=== PATIENT | female | born 1985 | race Caucasian/White ===

== ENCOUNTER → 2017-01-02 | Outpatient (CLI) | payer OTHER | END | disposition home or self-care (01) | LOC: LABWHC1 11:02 | PROVIDERS: ATTEND Obstetrics & Gynecology | DX: Z34.00 Encounter for supervision of normal first pregnancy, unspecified trimester (principal); Z3A.00 Weeks of gestation of pregnancy not specified | CPT/HCPCS: 36415; 84702 ==

== ENCOUNTER → 2017-01-18 | Outpatient (CLI) | payer OTHER ==
--- NOTE | 2017-01-19 07:20 | US ---
EXAMINATION TYPE: US OB anatomy transabd DATE OF EXAM: 01/18/2017 5:28 PM COMPARISON: NONE HISTORY: Z36 Confirm Dates TECHNIQUE: Transabdominal (TA) EXAM MEASUREMENTS: GESTATIONAL AGE / DATING Physician Established: not established Dates by LMP: uncertain Dates by First Scan: no previous Dates by Current Scan for: (23 weeks/5 days) EDC: 05/12/2017 SURVEY IUP: Single PLACENTA: Posterior PREVIA: No previa JOSÉ MIGUEL: 14.1 cm CERVICAL LENGTH (transabdominal: norm > 3.0cm): 3.7 cm BIOMETRY PRESENTATION: Vertex LIE: Oblique BPD: 5.7 cm 23 weeks / 4 days HC: 21.1 cm 23 weeks / 1 days AC: 19.4 cm 24 weeks / 1 days FL: 4.2 cm 23 weeks / 5 days ESTIMATED WEIGHT IN GRAMS: 631 grams ESTIMATED WEIGHT IN LBS/OZS: 1 lbs. 6 oz. WEIGHT PERCENTAGE BASED ON ESTABLISHED DATE: % HC/AC: 1.1 Normal FL/AC: 21.7 Normal HEART RATE: 141 bpm RHYTHM: Normal ANATOMY SEEN (within normal limits): * Lateral Vent (< 1 cm) 0.5 cm * Cisterna Magna (< 1.1 cm) 0.5 cm * Nuchal Fold (< 0.6 cm) 0.4 cm * Cerebellum (varies with age) 2.4 cm Choroid Plexus (bilateral) Midline Falx Cavus Septi Pellucidi Four Chamber Heart Outflow tracts: LVOT Stomach Situs Diaphragm Kidneys (bilateral) Bladder Cord Insert Three Vessel Cord Longitudinal Spine Transverse Spine Arms (bilateral) Legs (bilateral) ANATOMY SEEN (does not appear within normal limits): ANATOMY NOT SEEN: Outflow tracts: RVOT Nose / lips 2 technologistAramis called to rescan for RVOT Call Back appointment made by patient utilising call center. Single live intrauterine gestation is confirmed. Normal cephalad presentation to fetus is currently s een. There is no ultrasound evidence for placenta previa. Amniotic fluid index is within normal limit s. biometry measurements are concordant felt within normal limits. Detailed anatomical survey s hows no suspicious abnormality during real-time scanning with the exception of nose and lips an d RV outflow tract. Still images saved show suboptimal visualization of four-chamber heart and kidneys also. IMPRESSION: As above
== END | disposition home or self-care (01) ==
LOC: RADUSWWP 16:14
PROVIDERS: ATTEND Obstetrics & Gynecology
DX: Z36 Encounter for antenatal screening of mother (principal); Z3A.23 23 weeks gestation of pregnancy
CPT/HCPCS: 76811

== ENCOUNTER → 2017-02-02 | Outpatient (CLI) | payer OTHER ==
--- NOTE | 2017-02-03 07:17 | US ---
EXAMINATION TYPE: US OB Call Back DATE OF EXAM: 02/02/2017 4:20 PM COMPARISON: US 01/18/2017 CLINICAL HISTORY: OB callback. Assess 4 chamber heart, LVOT/RVOT, kidneys, nose/lips. GESTATIONAL AGE / DATING Dates by Initial Survey Scan: (23 weeks/5 days) EDC: 05/12/2017 HEART RATE: 142 bpm RHYTHM: Normal ANATOMY SEEN (second anatomic survey look): Four Chamber Heart: Nose / Lips: Kidneys (bilateral): ANATOMY STILL NOT SEEN (requiring an additional callback appt): Outflow tracts:? LVOT/RVOT due to lie and shadowing from ribs IMPRESSION: Additional callback required given poor visualization of cardiac anatomy.
== END | disposition home or self-care (01) ==
LOC: RADUSWWP 15:37
PROVIDERS: ATTEND Obstetrics & Gynecology
DX: Z36 Encounter for antenatal screening of mother (principal); Z3A.23 23 weeks gestation of pregnancy

== ENCOUNTER → 2017-02-08 | Outpatient (CLI) | payer OTHER ==
[2017-02-08 08:37] LABS: CH 30.6; CHCM 34.7; HCT 34.8 % (34.0-46.0); HDW 3.08; HGB 12.2 gm/dL (11.4-16.0); MCH 30.9 pg (25.0-35.0); MCHC 34.9 g/dL (31.0-37.0); MCV 88.6 fL (80.0-100.0); Mean Platelet Volume 7.7; Non-African American GFR(MDRD) >60 (>60 ml/min/1.73 sqM); RBC 3.93 m/uL (3.80-5.40); WBC 12.5 k/uL (3.8-10.6)
[2017-02-08 08:49] LABS: Appearance,Urine Clear (Clear); Bilirubin,Urine Negative (Negative); Glucose,Urine (UA) Negative (Negative); Ketones,Urine Negative (Negative); Leukocyte Esterase,Urine Negative (Negative); Nitrite,Urine Negative (Negative); PH, Urine 6.5 (5.0-8.0); Protein,Urine Negative (Negative); Specific Gravity,Urine 1.014 (1.001-1.035); UA Billing (MACRO vs. MICRO) CHEM; Urobilinogen,Urine <2.0 mg/dL (<2.0)
[2017-02-08 09:00] LABS: Hepatitis B Surface Ag Index 0.05
[2017-02-09 07:13] LABS: HIV-1/HIV-2 Ab Screen NONREAC (NON REAC)
== END | disposition home or self-care (01) ==
LOC: LABWHC1 06:52
PROVIDERS: ATTEND Obstetrics & Gynecology
DX: Z34.82 Encounter for supervision of other normal pregnancy, second trimester (principal); R53.83 Other fatigue
CPT/HCPCS: 36415; 81003; 82565; 82950; 85027; 86762; 86780; 86850; 86870; 86880; 86886; 86900; 86901; 87086; 87340; 87389; 87491; 87591

== ENCOUNTER → 2017-04-30 | Outpatient (CLI) | payer OTHER ==
--- NOTE | 2017-04-30 11:45 | US ---
EXAMINATION TYPE: US OB >= 14 wk fetus DATE OF EXAM: 04/30/2017 COMPARISON: 01/18/2017 CLINICAL HISTORY: O36.63XO LARGE FOR DUE DATES TECHNIQUE: Transabdominal (TA) GESTATIONAL AGE / DATING Physician Established: (38 weeks/2 days) EDC: 05/12/2017 Dates by LMP: unknown Dates by First Scan: (38 weeks/2 days) EDC: 05/12/2017 Dates by Current Scan: (37 weeks/0 days) EDC: 05/21/2017 SURVEY IUP: Single PLACENTA: accessory anterior, unable to seen posterior placenta PREVIA: No Previa JOSÉ MIGUEL: 12.7 cm Normal CERVICAL LENGTH (transabdominal: norm > 3.0cm): 3.3 cm BIOMETRY PRESENTATION: Vertex LIE: Oblique BPD: 8.9 cm 36 weeks / 0 days HC: 33.1 cm 37 weeks / 5 days AC: 34.0 cm 37 weeks / 6 days FL: 7.3 cm 37 weeks / 2 days ESTIMATED WEIGHT IN GRAMS: 3226 grams ESTIMATED WEIGHT IN LBS/OZS: 7 lbs. 2 oz. WEIGHT PERCENTAGE BASED ON ESTABLISHED DATES: 43% HC/AC: 1.0 Normal FL/AC: 22 Normal HEART RATE: 143 bpm RHYTHM: Normal Probable anterior accessory lobe of placenta, unable to image posterior placenta due to lie. IMPRESSION: 1. Limited assessment of anatomy due to advanced gestational age. 2. Viable of 37 weeks 0 days with an EDC of 05/21/2017 and heart rate 143 bpm.
== END | disposition home or self-care (01) ==
LOC: RADUSWWP 10:54
PROVIDERS: ATTEND Obstetrics & Gynecology
DX: O36.63X0 Maternal care for excessive fetal growth, third trimester, not applicable or unspecified (principal); Z3A.37 37 weeks gestation of pregnancy
CPT/HCPCS: 76805

== ENCOUNTER 2017-05-15 14:43 | Inpatient (IN) | payer OTHER ==
[2017-05-15 16:34] LABS: Basophils % (A) 0 %; CH 30.6; Eosinophils # (A) 0.1 k/uL (0-0.7); Eosinophils % (A) 1 %; HCT 37.4 % (34.0-46.0); HDW 2.92; HGB 12.6 gm/dL (11.4-16.0); Luc % (Auto) 1; Lymphocytes # (A) 1.3 k/uL (1.0-4.8); Lymphocytes % (A) 9 %; MCH 29.5 pg (25.0-35.0); MCHC 33.6 g/dL (31.0-37.0); MCV 87.8 fL (80.0-100.0); Mean Platelet Volume 8.9; Monocytes # (A) 0.6 k/uL (0-1.0); Monocytes % (A) 4 %; Neutrophils # (A) 11.8 k/uL (1.3-7.7); Neutrophils % (A) 84 %; RBC 4.27 m/uL (3.80-5.40); RDW 14.9 % (11.5-15.5); WBC (Perox) 14.21
[2017-05-15 16:37] LABS: Appearance,Urine Clear (Clear); Bilirubin,Urine Negative (Negative); Glucose,Urine (UA) Negative (Negative); Ketones,Urine Negative (Negative); Leukocyte Esterase,Urine Moderate (Negative); Mucus,Urine Rare /hpf; Nitrite,Urine Negative (Negative); PH, Urine 7.5 (5.0-8.0); Particle Count 3520; Protein,Urine Trace (Negative); RBC,Urine 10 /hpf (0-5); Specific Gravity,Urine 1.017 (1.001-1.035); Squamous Epithelial Cell,Urine 4 /hpf (0-4); UA Billing (MACRO vs. MICRO) MICRO; Urobilinogen,Urine <2.0 mg/dL (<2.0); WBC,Urine 24 /hpf (0-5)
[2017-05-15 16:42] LABS: INR 0.9 (<1.2); Partial Thromboplastin Time 23.1 sec (22.0-30.0); Prothrombin Time 9.6 sec (9.0-12.0)
[2017-05-15 16:43] LABS: ALT 36 U/L (9-52); AST 27 U/L (14-36); Blood Urea Nitrogen 8 mg/dL (7-17); LDH 580 U/L (313-618); Non-African American GFR(MDRD) >60 (>60 ml/min/1.73 sqM); Uric Acid 4.7 mg/dL (3.7-7.4)
[2017-05-15 17:16] VITALS: BMI 39.9
[2017-05-15] MEDS: LACTATED RINGERS 1,000 ML IV SCH ×2 (18:15→23:43)
--- NOTE | 2017-05-15 18:18 | P.HPOB ---
History of Present Illness H&P Date: 05/15/17 Chief Complaint: Intrauterine at term: Gestational hypertension: Questionable rupt eJnnifer is a 31-year-old G 2 P0 at 40-3/7 weeks gestation who arrived to my office afternoon for her normal preoperative visit. On evaluation was noted that her blood pressures 156 over's 80 and she was sent to labor and delivery due to gestational hypertension and she also other blood pressures last week. The goal was to watch her today and potentially start to deliver her tomorrow however multiple blood pressures in labor and delivery also been elevated and then in talking to her she noted that she began leaking potentially earlier this morning this is for she's mentioned artificial rupture members was attempted but no fluid came out and no bag of water could be identified. She is to have centimeter dilated 80% effaced -2 station. Suspect rupture membranes earlier today as well. We'll initiate antibody therapy the next few hours as it is unlikely she will deliver before it is been 18 hours since potential rupture since she did rupture at approximately 6 this morning potentially. Her Precis course otherwise was significant for a positive antibody screening it was too weak E we have repeated multiple times and no other findings have been elucidated. She didn't see maternal medicine consult but again we've been unable to find any change in her antibody screen numbers and her ultrasounds and other course has been unremarkable. Pertinent labs do include AB+ blood type Rh antibody was again positive between 2 identify. Rubella immune, hepatitis B surface antigen and RPR both negative. Groupie strep was also negative. On physical exam vital signs are stable and afebrile. Heart regular, lungs clear, extremities without pain. Osteopathic exams unremarkable. Her preeclamptic labs were only significant for trace protein. Assessment intrauterine at 40 weeks with gestational hypertension and questionable spontaneous rupture membranes earlier today. Plan expect spontaneous vaginal delivery Past Medical History Past Medical History: Asthma, Hypertension Additional Past Medical History / Comment(s): optical migraines, asthma, elev in b/p, contacts in History of Any Multi-Drug Resistant Organisms: None Reported Past Surgical History: Tonsillectomy Additional Past Surgical History / Comment(s): ectopic Past Anesthesia/Blood Transfusion Reactions: No Reported Reaction Additional Past Anesthesia/Blood Transfusion Reaction / Comment(s): hx of transfusion. weak antibody on blood that is undeterminable. Past Psychological History: No Psychological Hx Reported Smoking Status: Never smoker Past Alcohol Use History: None Reported Past Drug Use History: None Reported - Past Family History Sister(s) Family Medical History: Rheumatoid Arthritis (RA) Additional Family Medical History / Comment(s): lupus Medications and Allergies Home Medications Medication Instructions Recorded Confirmed Type Fluticasone Propionate [Flovent 100 mcg INHALATION 05/10/17 History Diskus] Montelukast [Singulair] 10 mg PO DAILY 05/10/17 05/15/17 History Pnv,Calcium 72/Iron/Folic Acid 1 tab PO DAILY 05/10/17 05/15/17 History [ Plus Tablet] Allergies Allergy/AdvReac Type Severity Reaction Status Date / Time No Known Allergies Allergy Verified 05/10/17 15:25 Exam Osteopathic Statement: *. No significant issues noted on an osteopathic structural exam other than those noted in the History and Physical/Consult. - Vital Signs Vital signs: Vital Signs Temp Pulse Resp BP Pulse Ox 05/15/17 16:00 98.2 F 125 H 18 142/77 96 Intake and Output 05/15/17 05/15/17 05/15/17 06:59 14:59 22:59 Other: Weight 115.666 kg Patient Weight 05/16/17 06:59 Weight 115.666 kg Results Result Diagrams: 05/15/17 16:10 05/15/17 16:10 Abnormal Lab Results - Last 24 Hours (Table) 05/15/17 05/15/17 Range/Units 16:10 16:10 WBC 14.0 H (3.8-10.6) k/uL Neutrophils # 11.8 H (1.3-7.7) k/uL Urine Protein Trace H (Negative) Ur Leukocyte Esterase Moderate H (Negative) Urine RBC 10 H (0-5) /hpf Urine WBC 24 H (0-5) /hpf Urine Mucus Rare H (None) /hpf
[2017-05-15] MEDS ORDERED: CARBOPROST TROMETHAMINE 250 MCG/ML 1 ML AMP IM PRN (18:20)
[2017-05-15] MEDS ORDERED: TERBUTALINE 1 MG/ML VIAL SQ PRN (18:20)
[2017-05-15] MEDS ORDERED: METHYLERGONOVINE 0.2 MG/ML 1 ML AMP IM PRN (18:20)
[2017-05-15] MEDS ORDERED: OXYTOCIN 10 UNIT/ML 1 ML VIAL IM PRN (18:20)
[2017-05-15] MEDS ORDERED: LIDOCAINE 1% (PF) 10 MG/ML (30 ML SDV) SQ PRN (18:20)
[2017-05-15] MEDS ORDERED: AMPICILLIN 2,000 MG in SODIUM CHLORIDE 0.9% 100 ML IVPB STA (18:26)
[2017-05-15] MEDS ORDERED: OXYTOCIN 20 UNITS/1000 ML NS 1,000 ML IV SCH (18:30)
[2017-05-15] MEDS ORDERED: BUTORPHANOL 1 MG/ML 1 ML VIAL IV PRN (21:39)
[2017-05-15] MEDS ORDERED: BUPIVACAINE (PF) 0.25% 30 ML VIAL ONE (23:28)
[2017-05-15] MEDS ORDERED: SODIUM CHLORIDE 0.9% 100 ML BAG ONE (23:28)
[2017-05-15] MEDS ORDERED: fentaNYL (PF) 50 MCG/ML 5 ML AMP ONE (23:28)
[2017-05-15] MEDS ORDERED: BUPIVACAINE (PF) 0.25% 25 ML, fentaNYL (PF) 200 MCG in SODIUM CHLORIDE 0.9% 71 ML EPIDURAL ONE (23:47)
[2017-05-16] MEDS: AMPICILLIN 1,000 MG in SODIUM CHLORIDE 0.9% 50 ML IVPB SCH ×4 (00:08→18:03)
[2017-05-16] MEDS: LACTATED RINGERS 1,000 ML IV SCH ×3 (03:21→20:52)
[2017-05-16] MEDS ORDERED: KETOROLAC 30 MG/ML 1 ML VIAL ONE (08:50)
[2017-05-16] MEDS ORDERED: CHLOROPROCAINE 3% 30 MG/ML 20 ML VIAL ONE (08:50)
[2017-05-16] MEDS ORDERED: OXYTOCIN 10 UNIT/ML 1 ML VIAL ONE (08:50)
[2017-05-16] MEDS ORDERED: PHENYLEPHRINE-0.9% NACL SYG 1 MG/10 ML SYRINGE ONE (08:50)
[2017-05-16] MEDS ORDERED: ONDANSETRON 4 MG/2 ML VIAL ONE (08:50)
[2017-05-16] MEDS ORDERED: fentaNYL (PF) 50 MCG/ML 2 ML AMP ONE (08:50)
[2017-05-16] MEDS ORDERED: METOCLOPRAMIDE 5 MG/ML 2 ML VIAL IVP PRN (09:56)
[2017-05-16] MEDS ORDERED: diphenhydrAMINE 50 MG/ML 1 ML VIAL IVP PRN ×2 (09:56)
[2017-05-16] MEDS ORDERED: HYDROmorphone PCA 5 MG/25 ML SYRINGE IV PRN (09:56)
[2017-05-16] MEDS ORDERED: SIMETHICONE 80 MG CHEWABLE PO PRN (09:56)
[2017-05-16] MEDS ORDERED: ONDANSETRON 4 MG/2 ML VIAL IVP PRN (09:56)
[2017-05-16] MEDS ORDERED: ZOLPIDEM 5 MG TAB PO PRN (09:56)
[2017-05-16] MEDS ORDERED: diphenhydrAMINE 25 MG CAP PO PRN (09:56)
[2017-05-16] MEDS ORDERED: diphenhydrAMINE 50 MG CAP PO PRN (09:56)
[2017-05-16] MEDS ORDERED: ACETAMINOPHEN TAB 325 MG TAB PO PRN (09:56)
[2017-05-16] MEDS ORDERED: NALOXONE 0.4 MG/ML 1 ML VIAL IV PRN (09:56)
--- NOTE | 2017-05-16 13:19 | P.OP ---
Date of Procedure: 05/16/17 Preoperative Diagnosis: Intrauterine at term: Gestational hypertension: Arrest of descent Postoperative Diagnosis: Same with asynclitic presentation Procedure(s) Performed: Primary low transverse section Implants: Anesthesia: epidural Surgeon: John Rome Sr. Director #1: Dulce Maria Zhong Estimated Blood Loss (ml): 400 IV fluids (ml): 1,500 Urine output (ml): 100 Pathology: other (Placenta) Condition: stable Disposition: floor Indications for Procedure: Operative Findings: Patient progressed complete and pushing and despite 2 hours pushing did not bring the baby down past 0 station. scores were 9 and 10 at one and 5 minutes respectively and the weight was 7 lbs. 11 oz. Description of Procedure: Patient was taken to the operating suite where is epidural anesthetic was found to be adequate. She was prepped and draped in the normal sterile fashion and placed in the dorsal supine position with leftward tilt. Initially a Pfannenstiel skin incision was made and this incision was then carried through to the underlying layer of the fascia was second knife. Fascia was then nicked in the midline and this opening was extended laterally with Tabares scissors. Superior and inferior aspect of this incision were grasped tented up and bluntly and sharply dissected off the rectus muscles. Rectus muscles were then divided midline and sharp dissection through the peritoneum was made. This opening was then extended superiorly and inferiorly with good visualization of both bowel bladder. Bladder blade was then placed bladder flap identified and entered with metastases scissors and this opening was extended across face of uterus. Blunt dissection the bladder flap was then made. Knife was then used to incise uterus opening was then fully created with a hemostat and the incision was extended bluntly. Head was then delivered atraumatically from asynclitic left transverse position once head was delivered mouth nares were bulb suctioned anterior posterior shoulders were delivered with gentle downward upper traction.. Umbilical cord was then clamped cut usual fashion an nursery personnel was present to assume care. Placenta was then delivered intact and Pitocin was added to the IV. Uterus was then exteriorized cleared of clots and debris and closed in 2 layers with 0 Vicryl suture. Bladder flap was reapproximated with 3-0 Vicryl. Blood and debris was suctioned from the posterior cul-de-sac and the uterus was reinserted into the abdomen. Peritoneal layer was then closed with 0 Vicryl suture fascial layer was closed with 0 Vicryl suture one layer of 3-0 Vicryl placed in the deep subcuticular tissue tissues to reapproximate skin and close space. Skin was then closed with fabiano. Sponge, lap, needle counts were all correct 2. Patient was then taken to the recovery room in stable and satisfactory condition.
[2017-05-16] MEDS: SENNOSIDES-DOCUSATE SODIUM 1 EACH TAB PO SCH (20:52)
[2017-05-17] MEDS: LACTATED RINGERS 1,000 ML IV SCH ×3 (01:46→20:55)
[2017-05-17 06:55] LABS: Basophils % (A) 0 %; CH 30.3; Eosinophils # (A) 0.1 k/uL (0-0.7); Eosinophils % (A) 0 %; HDW 2.86; HGB 10.9 gm/dL (11.4-16.0); Luc # (Auto) 0.23; Luc % (Auto) 2; Lymphocytes # (A) 1.8 k/uL (1.0-4.8); Lymphocytes % (A) 11 %; MCH 29.6 pg (25.0-35.0); MCV 89.7 fL (80.0-100.0); Mean Platelet Volume 8.8; Monocytes # (A) 0.6 k/uL (0-1.0); Monocytes % (A) 4 %; Neutrophils % (A) 83 %; RBC 3.69 m/uL (3.80-5.40); WBC 15.8 k/uL (3.8-10.6); WBC (Perox) 16.68
--- NOTE | 2017-05-17 09:57 | P.PNOBGPC ---
Subjective - Subjective Principal diagnosis: Postop day 1 Interval history: Overall is doing very well postop day 1. She is ambulating, voiding, and she is tolerating a diet. She voices no complaints. Vital signs are stable and afebrile. Plan for continued current care. Patient reports: Reports appetite normal, Reports voiding normally, Reports pain well controlled, Reports ambulating normally [place]: doing well Objective - Vital Signs Latest vital signs: Vital Signs Temp Pulse Resp BP Pulse Ox 05/17/17 08:00 98.4 F 95 15 126/72 95 05/17/17 03:34 97.9 F 95 16 114/64 100 05/17/17 00:00 98.0 F 87 16 106/54 100 05/16/17 20:00 98.7 F 117 H 18 125/63 97 05/16/17 15:47 98.4 F 105 H 18 128/64 97 05/16/17 11:39 97.4 F L 113 H 16 136/78 98 05/16/17 11:09 112 H 16 133/70 100 05/16/17 10:39 108 H 16 136/69 98 05/16/17 10:24 93 16 136/76 98 05/16/17 10:09 108 H 16 132/77 96 Intake and Output 05/16/17 05/17/17 05/17/17 22:59 06:59 14:59 Intake Total 900 Output Total 750 Balance -750 900 Intake: IV 900 Invasive Line 1 900 Output: Urine 750 Straight 400 Other: # Voids 1 - Exam Lungs: bilateral: normal Chest: Normal S1, Normal S2 Extremities: Present: normal Abdomen: Present: normal appearance, soft. Absent: distention, tenderness Incision: Present: normal, dry, intact Uterus: Present: normal, firm - Labs Labs: Abnormal Lab Results - Last 24 Hours (Table) 05/17/17 Range/Units 06:40 WBC 15.8 H (3.8-10.6) k/uL RBC 3.69 L (3.80-5.40) m/uL Hgb 10.9 L (11.4-16.0) gm/dL Hct 33.0 L (34.0-46.0) % Neutrophils # 13.0 H (1.3-7.7) k/uL
[2017-05-17] MEDS: SENNOSIDES-DOCUSATE SODIUM 1 EACH TAB PO SCH ×2 (10:35→20:28)
[2017-05-17] MEDS: IBUPROFEN 600 MG TAB PO PRN (10:35)
[2017-05-17] MEDS ORDERED: Acetaminophen-Codeine 300-30mg TAB PO PRN ×2 (12:26→12:29)
[2017-05-18] MEDS: IBUPROFEN 600 MG TAB PO PRN
[2017-05-18 00:13] VITALS: RESP 16
--- NOTE | 2017-05-18 08:04 | P.DS ---
Providers Date of admission: 05/15/17 14:43 Expected date of discharge: 05/18/17 Attending physician: John Rome Primary care physician: Stated None Hospital Course: is doing very well postop day 2. She is ambulating, voiding, and she is tolerating her diet. She voices no complaints. Vital signs are stable and afebrile. Heart regular, lungs, extremities without pain. Abdomen soft uterus is firm incision is clean dry and intact. Prescriptions for pain medicine have been provided as well as prescription for breast pump. Discharge instructions were thoroughly reviewed and all questions are answered for her prior to her discharge. Assessment postop day 2. Plan discharged home follow up with me in 1 week Patient Condition at Discharge: Good Plan - Discharge Summary New Discharge Prescriptions: New Acetaminophen-Codeine 300-30mg [Tylenol #3] 1 tab PO Q4H PRN #30 tablet PRN Reason: Pain Ibuprofen [Motrin] 600 mg PO Q6HR PRN #30 tab PRN Reason: Pain No Action Fluticasone Propionate [Flovent Diskus] 100 mcg INHALATION Montelukast [Singulair] 10 mg PO DAILY Pnv,Calcium 72/Iron/Folic Acid [ Plus Tablet] 1 tab PO DAILY Discharge Medication List Fluticasone Propionate [Flovent Diskus] 100 mcg INHALATION 05/10/17 [History] Montelukast [Singulair] 10 mg PO DAILY 05/10/17 [History] Pnv,Calcium 72/Iron/Folic Acid [ Plus Tablet] 1 tab PO DAILY 05/10/17 [ History] Acetaminophen-Codeine 300-30mg [Tylenol #3] 1 tab PO Q4H PRN #30 tablet [Rx] Ibuprofen [Motrin] 600 mg PO Q6HR PRN #30 tab 05/18/17 [Rx] Follow up Appointment(s)/Referral(s): John Rome DO [Doctor of Osteopathic Medicine] - 1 Week Activity/Diet/Wound Care/Special Instructions: No heavy lifting, limit stairs and driving, and pelvic rest. If any high temperatures, heavy bleeding, or severe pain call my office Discharge Disposition: HOME SELF-CARE
[2017-05-18] MEDS: SENNOSIDES-DOCUSATE SODIUM 1 EACH TAB PO SCH (08:44)
[2017-05-18 08:59] VITALS: BP 139/87; PULSE 106; TEMP 98
== END 2017-05-18 12:42 | disposition home or self-care (01) | DRG 766 ==
LOC: 4FBP 14:43
PROVIDERS: ADMIT Obstetrics & Gynecology; ATTEND Obstetrics & Gynecology
PROC: 00HU33Z Insertion of Infusion Device into Spinal Canal, Percutaneous Approach (ICD-10-PCS; 2017-05-15)
PROC: 3E0R3CZ (ICD-10-PCS; 2017-05-15)
PROC: 10D00Z1 Extraction of Products of Conception, Low, Open Approach (ICD-10-PCS; principal; 2017-05-16)
DX: O13.4 Gestational [pregnancy-induced] hypertension without significant proteinuria, complicating childbirth (principal); G43.909 Migraine, unspecified, not intractable, without status migrainosus; J45.909 Unspecified asthma, uncomplicated; O99.52 Diseases of the respiratory system complicating childbirth; O62.1 Secondary uterine inertia; Z37.0 Single live birth; Z3A.40 40 weeks gestation of pregnancy; Z79.51 Long term (current) use of inhaled steroids; Z79.899 Other long term (current) drug therapy
CPT/HCPCS: 81001; 82565; 83615; 84450; 84460; 84520; 84550; 85025; 85610; 85730; 88307

== ENCOUNTER → 2018-04-26 | Outpatient (CLI) | payer BC ==
--- NOTE | 2018-04-26 16:50 | US ---
EXAMINATION TYPE: US thyroid st tissue head/neck DATE OF EXAM: 04/26/2018 COMPARISON: NONE CLINICAL HISTORY: E04.9 Goiter. Goiter GLAND SIZE: Right Lobe: 6.1 x 2.2 x 2.7 cm Overall Parenchyma: heterogenous Left Lobe: 6.4 x 2.0 x 2.7 cm Overall Parenchyma: heterogeneous Isthmus Thickness: 0.7 cm NODULES RIGHT: # of nodules measured on right: 0 LEFT: # of nodules measured on left: 0 ISTHMUS: # of nodules measured in the isthmus: 0 Bilateral neck scanned, multiple lymph nodes noted Heterogeneous thyroid gland IMPRESSION: 1. Thyroid lobes are heterogenous. No suspicious nodules.
== END | disposition home or self-care (01) ==
LOC: RADUSWWP 16:06
PROVIDERS: ATTEND Pediatrics
DX: E04.9 Nontoxic goiter, unspecified (principal)
CPT/HCPCS: 76536

== ENCOUNTER 2019-02-24 10:37 | Emergency (ER) | payer OTHER, BC ==
[2019-02-24 10:45] VITALS: BP 142/90; RESP 20; TEMP 98
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
[2019-02-24 12:02] VITALS: PULSE 101
== END 2019-02-24 12:04 | disposition home or self-care (01) ==
LOC: EC 10:37
DX: S20.219A Contusion of unspecified front wall of thorax, initial encounter (principal); V89.2XXA Person injured in unspecified motor-vehicle accident, traffic, initial encounter; Y92.410 Unspecified street and highway as the place of occurrence of the external cause
CPT/HCPCS: 70450; 71046; 72125; 99284

== ENCOUNTER 2020-08-22 16:18 | Emergency (ER) | payer BC ==
[2020-08-22 16:39] VITALS: BP 129/84; PULSE 87; RESP 18; TEMP 98.4
[2020-08-22] MEDS ORDERED: KETOROLAC 15 MG/ML 1 ML VIAL IM STA (16:48)
--- NOTE | 2020-08-22 16:56 | ED ---
Upper Extremity HPI - General Chief Complaint: Extremity Injury, Upper Stated Complaint: L Index Finger Injury Time Seen by Provider: 08/22/20 16:41 Source: patient Mode of arrival: ambulatory Limitations: no limitations - History of Present Illness Initial Comments: 35-year-old female presenting to emergency Department with a chief complaint of finger injury. Patient reports she smashed her left index finger about 2 hours ago. States she was moving a large plantar and her finger was pinned under it and is symmetric. Patient reports there is limited range of motion swelling and mild ecchymosis in the region. Reports taking 3 Tylenol tablets for pain with no significant improvement of symptoms. She denies any numbness or tingling. - Related Data Home Medications Medication Instructions Recorded Confirmed Acetaminophen Tab [Tylenol Tab] 1,000 mg PO Q6HR PRN 02/24/19 02/24/19 Allergies Allergy/AdvReac Type Severity Reaction Status Date / Time No Known Allergies Allergy Verified 08/22/20 16:40 Review of Systems ROS Statement: Those systems with pertinent positive or pertinent negative responses have been documented in the HPI. ROS Other: All systems not noted in ROS Statement are negative. Past Medical History Past Medical History: Asthma History of Any Multi-Drug Resistant Organisms: None Reported Past Surgical History: Section, Tonsillectomy Past Psychological History: No Psychological Hx Reported Smoking Status: Never smoker Past Alcohol Use History: Rare Past Drug Use History: None Reported General Exam Limitations: no limitations General appearance: alert, in no apparent distress Head exam: Present: atraumatic, normocephalic, normal inspection Eye exam: Present: normal appearance, PERRL, EOMI Pupils: Present: normal accommodation ENT exam: Present: normal exam, normal oropharynx, mucous membranes moist, TM's normal bilaterally, normal external ear exam Neck exam: Present: normal inspection, full ROM. Absent: tenderness Respiratory exam: Present: normal lung sounds bilaterally. Absent: respiratory distress, wheezes, rales Cardiovascular Exam: Present: regular rate, normal rhythm, normal heart sounds. Absent: systolic murmur, diastolic murmur Extremities exam: Present: tenderness (Tenderness at the site of injury. No open wounds.), normal capillary refill, other (+2 ulnar and radial pulses bilateral.). Absent: normal inspection (Swelling, small region of ecchymosis near the PIP of the left index finger.), full ROM (Limited range of motion of the PIP of the left index finger.), pedal edema, joint swelling, calf tenderness Back exam: Present: normal inspection, full ROM. Absent: tenderness, CVA tenderness (R), CVA tenderness (L) Neurological exam: Present: alert, oriented X3, normal gait Psychiatric exam: Present: normal affect. Absent: depressed, agitated Skin exam: Present: warm, dry, intact, normal color Course Vital Signs 08/22/20 16:35 Temperature 98.4 F Pulse Rate 87 Respiratory 18 Rate Blood Pressure 129/84 O2 Sat by Pulse 100 Oximetry Medical Decision Making - Medical Decision Making 35-year-old female presenting to the emergency department with a chief complaint of finger injury. On physical examination, patient has tenderness, swelling and a small region of ecchymosis along with limit her range of motion in the PIP of the left index finger. X-rays negative for acute fractures or dislocations. Patient was given Toradol for pain. She was also advised to apply ice compress. Strict return parameters were thoroughly discussed with patient is resting agreeable. Case discussed with physician. Disposition Clinical Impression: Injury of left index finger, Finger contusion Disposition: HOME SELF-CARE Condition: Stable Instructions (If sedation given, give patient instructions): Finger Sprain (ED) Additional Instructions: Alternate between Tylenol and Motrin for pain control. Apply ice compress. Follow with the primary care physician. Return to emergency department if symptoms worsen. Is patient prescribed a controlled substance at d/c from ED?: No Referrals: Gino Fish MD [Primary Care Provider] - 1-2 days Time of Disposition: 17:25
--- NOTE | 2020-08-22 17:02 | XR ---
EXAMINATION TYPE: XR hand complete LT DATE OF EXAM: 08/22/2020 COMPARISON: NONE HISTORY: Injury and pain index finger TECHNIQUE: 3 views FINDINGS: The carpals are intact. I see no fracture nor dislocation. The index finger appears intact. There is no evidence of a foreign body. Joint spaces are normal. IMPRESSION: Negative left hand exam. No fracture seen.
== END 2020-08-22 17:29 | disposition home or self-care (01) ==
LOC: EC 16:18
DX: S60.022A Contusion of left index finger without damage to nail, initial encounter (principal); W22.8XXA Striking against or struck by other objects, initial encounter
CPT/HCPCS: 73130; 99283; 96372; J1885

== ENCOUNTER → 2020-09-01 | Outpatient (CLI) | payer BC ==
--- NOTE | 2020-09-01 11:15 | XR ---
EXAMINATION TYPE: XR hand complete LT DATE OF EXAM: 09/01/2020 COMPARISON: 08/22/2020 HISTORY: Contusion of left finger bruising can feel second digit TECHNIQUE: Three-view left hand FINDINGS: Patient's ring is on during the exam. No acute fractures or dislocations are evident. Joint spaces are preserved. Soft tissues appear normal. IMPRESSION: 1. Normal three-view left hand as visualized.
== END | disposition home or self-care (01) ==
LOC: RADXRMAIN 10:33
PROVIDERS: ATTEND Pediatrics
DX: S60.222A Contusion of left hand, initial encounter (principal)

== ENCOUNTER 2021-03-19 02:25 | Emergency (ER) | payer BC ==
[2021-03-19 02:35] VITALS: TEMP 97.9
[2021-03-19] MEDS ORDERED: SODIUM CHLORIDE 0.9% 1,000 ML IV STA (02:58)
[2021-03-19] MEDS ORDERED: MORPHINE SULFATE 4 MG/ML SYRINGE IV STA (02:58)
[2021-03-19] MEDS ORDERED: KETOROLAC 15 MG/ML 1 ML VIAL IVP STA (02:58)
--- NOTE | 2021-03-19 02:58 | ED ---
Abdominal Pain HPI - General Chief Complaint: Abdominal Pain Stated Complaint: Detected. He was wearing home Time Seen by Provider: 03/19/21 02:30 Source: patient Mode of arrival: ambulatory Limitations: no limitations - Related Data Home Medications Medication Instructions Recorded Confirmed Acetaminophen Tab [Tylenol Tab] 1,000 mg PO Q6HR PRN 02/24/19 02/24/19 Allergies Allergy/AdvReac Type Severity Reaction Status Date / Time No Known Allergies Allergy Verified 03/19/21 02:31 Review of Systems ROS Statement: Those systems with pertinent positive or pertinent negative responses have been documented in the HPI. ROS Other: All systems not noted in ROS Statement are negative. Past Medical History Past Medical History: Asthma History of Any Multi-Drug Resistant Organisms: None Reported Past Surgical History: Section, Tonsillectomy Additional Past Surgical History / Comment(s): D and C Past Psychological History: No Psychological Hx Reported Smoking Status: Never smoker Past Alcohol Use History: Rare Past Drug Use History: None Reported General Exam Limitations: no limitations Course Vital Signs 03/19/21 02:31 Temperature 97.9 F Pulse Rate 100 Respiratory 18 Rate Blood Pressure 139/83 O2 Sat by Pulse 100 Oximetry Medical Decision Making - Lab Data Result diagrams: 03/19/21 03:10 03/19/21 03:10 Lab Results 03/19/21 03/19/21 03/19/21 Range/Units 03:10 03:10 03:10 WBC 8.5 (3.8-10.6) k/uL RBC 4.79 (3.80-5.40) m/uL Hgb 13.6 (11.4-16.0) gm/dL Hct 42.0 (34.0-46.0) % MCV 87.7 (80.0-100.0) fL MCH 28.4 (25.0-35.0) pg MCHC 32.4 (31.0-37.0) g/dL RDW 13.5 (11.5-15.5) % Plt Count 204 (150-450) k/uL MPV 7.2 Neutrophils % 66 % Lymphocytes % 26 % Monocytes % 4 % Eosinophils % 1 % Basophils % 1 % Neutrophils # 5.6 (1.3-7.7) k/uL Lymphocytes # 2.2 (1.0-4.8) k/uL Monocytes # 0.4 (0-1.0) k/uL Eosinophils # 0.1 (0-0.7) k/uL Basophils # 0.0 (0-0.2) k/uL Sodium (137-145) mmol/L Potassium (3.5-5.1) mmol/L Chloride (98-107) mmol/L Carbon Dioxide (22-30) mmol/L Anion Gap mmol/L BUN (7-17) mg/dL Creatinine (0.52-1.04) mg/dL Est GFR (CKD-EPI)AfAm (>60 ml/min/1.73 sqM) Est GFR (CKD-EPI)NonAf (>60 ml/min/1.73 sqM) Glucose (74-99) mg/dL Plasma Lactic Acid Ian (0.7-2.0) mmol/L Calcium (8.4-10.2) mg/dL Total Bilirubin (0.2-1.3) mg/dL AST (14-36) U/L ALT (4-34) U/L Alkaline Phosphatase (38-126) U/L Total Protein (6.3-8.2) g/dL Albumin (3.5-5.0) g/dL Amylase (30-110) U/L Lipase (23-300) U/L Urine Color Yellow Urine Appearance Cloudy H (Clear) Urine pH 6.5 (5.0-8.0) Ur Specific [place] 1.027 (1.001-1.035) Urine Protein Trace H (Negative) Urine Glucose (UA) Negative (Negative) Urine Ketones Negative (Negative) Urine Blood Negative (Negative) Urine Nitrite Negative (Negative) Urine Bilirubin Negative (Negative) Urine Urobilinogen 6.0 (<2.0) mg/dL Ur Leukocyte Esterase Large H (Negative) Urine RBC 3 (0-5) /hpf Urine WBC 24 H (0-5) /hpf Ur Squamous Epith Cells 9 H (0-4) /hpf Urine Bacteria Occasional H (None) /hpf Urine Mucus Occasional H (None) /hpf Urine HCG, Qual Not Detected (Not Detectd) 03/19/21 03/19/21 Range/Units 03:10 03:10 WBC (3.8-10.6) k/uL RBC (3.80-5.40) m/uL Hgb (11.4-16.0) gm/dL Hct (34.0-46.0) % MCV (80.0-100.0) fL MCH (25.0-35.0) pg MCHC (31.0-37.0) g/dL RDW (11.5-15.5) % Plt Count (150-450) k/uL MPV Neutrophils % % Lymphocytes % % Monocytes % % Eosinophils % % Basophils % % Neutrophils # (1.3-7.7) k/uL Lymphocytes # (1.0-4.8) k/uL Monocytes # (0-1.0) k/uL Eosinophils # (0-0.7) k/uL Basophils # (0-0.2) k/uL Sodium 139 (137-145) mmol/L Potassium 3.8 (3.5-5.1) mmol/L Chloride 106 (98-107) mmol/L Carbon Dioxide 25 (22-30) mmol/L Anion Gap 8 mmol/L BUN 14 (7-17) mg/dL Creatinine 0.91 (0.52-1.04) mg/dL Est GFR (CKD-EPI)AfAm >90 (>60 ml/min/1.73 sqM) Est GFR (CKD-EPI)NonAf 83 (>60 ml/min/1.73 sqM) Glucose 98 (74-99) mg/dL Plasma Lactic Acid Ian 1.3 (0.7-2.0) mmol/L Calcium 9.1 (8.4-10.2) mg/dL Total Bilirubin 0.6 (0.2-1.3) mg/dL AST 45 H (14-36) U/L ALT 44 H (4-34) U/L Alkaline Phosphatase 85 (38-126) U/L Total Protein 6.6 (6.3-8.2) g/dL Albumin 4.0 (3.5-5.0) g/dL Amylase 44 (30-110) U/L Lipase 141 (23-300) U/L Urine Color Urine Appearance (Clear) Urine pH (5.0-8.0) Ur Specific [place] (1.001-1.035) Urine Protein (Negative) Urine Glucose (UA) (Negative) Urine Ketones (Negative) Urine Blood (Negative) Urine Nitrite (Negative) Urine Bilirubin (Negative) Urine Urobilinogen (<2.0) mg/dL Ur Leukocyte Esterase (Negative) Urine RBC (0-5) /hpf Urine WBC (0-5) /hpf Ur Squamous Epith Cells (0-4) /hpf Urine Bacteria (None) /hpf Urine Mucus (None) /hpf Urine HCG, Qual (Not Detectd) - EKG Data -: EKG Interpreted by Me (EKG shows sinus rhythm 100. We'll 40 QRS 82 QTC 441) Disposition Clinical Impression: Abdominal pain Disposition: HOME SELF-CARE Condition: Good Instructions (If sedation given, give patient instructions): Abdominal Pain (ED) Is patient prescribed a controlled substance at d/c from ED?: No Referrals: Gino Fish MD [Primary Care Provider] - 1-2 days
[2021-03-19 03:23] LABS: Appearance,Urine Cloudy (Clear); Bacteria,Urine Occasional /hpf; Bilirubin,Urine Negative (Negative); Blood,Urine Negative (Negative); Color,Urine Yellow; Glucose,Urine (UA) Negative (Negative); Ketones,Urine Negative (Negative); Leukocyte Esterase,Urine Large (Negative); Mucus,Urine Occasional /hpf; Nitrite,Urine Negative (Negative); PH, Urine 6.5 (5.0-8.0); Protein,Urine Trace (Negative); RBC,Urine 3 /hpf (0-5); Specific Gravity,Urine 1.027 (1.001-1.035); Squamous Epithelial Cell,Urine 9 /hpf (0-4); WBC,Urine 24 /hpf (0-5)
[2021-03-19 03:27] LABS: Basophils % (A) 1 %; Eosinophils # (A) 0.1 k/uL (0-0.7); Eosinophils % (A) 1 %; HGB 13.6 gm/dL (11.4-16.0); Lymphocytes # (A) 2.2 k/uL (1.0-4.8); Lymphocytes % (A) 26 %; MCH 28.4 pg (25.0-35.0); MCHC 32.4 g/dL (31.0-37.0); MCV 87.7 fL (80.0-100.0); Mean Platelet Volume 7.2; Monocytes # (A) 0.4 k/uL (0-1.0); Monocytes % (A) 4 %; Neutrophils # (A) 5.6 k/uL (1.3-7.7); Neutrophils % (A) 66 %; Platelet Count 204 k/uL (150-450); RBC 4.79 m/uL (3.80-5.40); RDW 13.5 % (11.5-15.5); WBC 8.5 k/uL (3.8-10.6)
[2021-03-19 03:36] LABS: ALT 44 U/L (4-34); AST 45 U/L (14-36); African American GFR (CKD) >90 (>60 ml/min/1.73 sqM); Alkaline Phosphatase 85 U/L (38-126); Amylase 44 U/L (30-110); Anion Gap 8 mmol/L; Blood Urea Nitrogen 14 mg/dL (7-17); Calcium 9.1 mg/dL (8.4-10.2); Carbon Dioxide 25 mmol/L (22-30); Chloride 106 mmol/L (98-107); Glucose 98 mg/dL (74-99); Lipase 141 U/L (23-300); Non-African American GFR(CKD) 83 (>60 ml/min/1.73 sqM); Potassium 3.8 mmol/L (3.5-5.1); Sodium 139 mmol/L (137-145); Total Bilirubin 0.6 mg/dL (0.2-1.3); Total Protein 6.6 g/dL (6.3-8.2)
--- NOTE | 2021-03-19 04:52 | CT ---
EXAMINATION TYPE: CT abdomen pelvis w con DATE OF EXAM: 03/19/2021 COMPARISON: None HISTORY: epigastric pain CT DLP: 2020.6 mGycm Automated exposure control for dose reduction was used. CONTRAST: Performed with IV Contrast, patient injected with 100 mL of Isovue 370. The lung bases are clear of infiltrate. There is no pleural effusion. Heart size is normal. There is no pericardial effusion. Liver spleen stomach pancreas gallbladder appear intact. Bile ducts are not dilated. There is no adrenal mass. Kidneys show satisfactory contrast opacification. There is no hydronephrosi s. Ureters are not dilated. There is no retroperitoneal adenopathy. Bladder distends smoothly. There is no inguinal hernia. Uterus is anteverted. There is no free fluid in the pelvis. There is no eviden ce of pelvic mass. There is some narrowing of the L4-5 disc space. Lumbar vertebra have normal alignment. There is no co mpression fracture. There is bilateral L5 spondylolysis without spondylolisthesis. The bony pelvis is intact. The hip joints are intact. There is no hip dysplasia. There is no mesenteric edema. There is no ascites or free air. There is no bowel obstruction. IMPRESSION: No acute abnormality of the abdomen pelvis. Normal appendix. L5 spondylolysis without spondylolisthesis. L4-5 degenerative disc changes. T12-L1 hypertrophic degen erative disc changes and also noted.
--- NOTE | 2021-03-19 04:55 | CT ---
EXAMINATION TYPE: CT angio chest DATE OF EXAM: 03/19/2021 COMPARISON: None HISTORY: Epigastric pain CT DLP: 2020.6 mGycm Automated exposure control for dose reduction was used. CONTRAST: Performed with IV Contrast, patient injected with 100 mL of Isovue 370. There are 3-D post processed images. Heart is normal. There is no pericardial effusion. There are no hilar masses. There is no mediastinal adenopathy. Thoracic aorta is intact. There is no aneurysm or dissection. There is normal contrast opacification of the pulmonary arteries. There are no filling defects. The l ungs are clear of consolidation. There is no evidence of a pulmonary mass. There is no pleural effusi on. The thoracic vertebra have normal alignment. There is no compression fracture. IMPRESSION: Negative exam. No evidence of pulmonary embolism. No cardiopulmonary disease.
[2021-03-19 05:18] VITALS: BP 133/62; PULSE 63; RESP 16
== END 2021-03-19 05:19 | disposition home or self-care (01) ==
LOC: EC 02:25
DX: R10.13 Epigastric pain (principal); J45.909 Unspecified asthma, uncomplicated
CPT/HCPCS: 36415; 80053; 82150; 83605; 83690; 85025; 81001; 81025; 87086; 71275; 74177; 99284; 96374; 96375; J2270; J1885; Q9967; 87077; 87186; 93005

== ENCOUNTER → 2021-09-14 | Outpatient (CLI) | payer BC ==
--- NOTE | 2021-09-19 12:33 | MM ---
Reason for exam: screening (asymptomatic). Baseline mammogram. History: Family history of breast cancer in paternal grandmother at age 70. Taking hormonal contraceptives for 15 years. Physical Findings: Nurse did not find any significant physical abnormalities on exam. MG Screening Mammo w CAD Bilateral CC and MLO view(s) were taken. The breast tissue is heterogeneously dense. This may lower the sensitivity of mammography. There is no discrete abnormality. ASSESSMENT: Benign, BI-RAD 2 RECOMMENDATION: Routine screening mammogram of both breasts in 1 year.
== END | disposition home or self-care (01) ==
LOC: RADMAMWWP 07:27
PROVIDERS: ATTEND Obstetrics & Gynecology
DX: Z12.31 Encounter for screening mammogram for malignant neoplasm of breast (principal); Z80.3 Family history of malignant neoplasm of breast
CPT/HCPCS: 77067

== ENCOUNTER 2023-10-27 00:07 | Emergency (ER) | payer BC ==
[2023-10-27 01:18] VITALS: TEMP 97.9
[2023-10-27] MEDS: SODIUM CHLORIDE 0.9% 1,000 ML IV STA (02:51)
[2023-10-27] MEDS: MORPHINE SULFATE 4 MG/ML SYRINGE IVP STA (02:54)
[2023-10-27] MEDS: ONDANSETRON 4 MG/2 ML VIAL IVP STA (02:55)
[2023-10-27 03:18] LABS: Basophils # (A) 0.1 k/uL (0-0.2); Basophils % (A) 1 %; Eosinophils # (A) 0.1 k/uL (0-0.7); Eosinophils % (A) 1 %; HCT 41.9 % (34.0-46.0); HGB 14.6 gm/dL (11.4-16.0); Lymphocytes # (A) 1.3 k/uL (1.0-4.8); Lymphocytes % (A) 10 %; MCH 29.3 pg (25.0-35.0); MCHC 34.9 g/dL (31.0-37.0); MCV 83.9 fL (80.0-100.0); Mean Platelet Volume 8.5; Monocytes # (A) 0.4 k/uL (0-1.0); Monocytes % (A) 3 %; Neutrophils # (A) 11.2 k/uL (1.3-7.7); Neutrophils % (A) 86 %; Platelet Count 247 k/uL (150-450); RDW 12.6 % (11.5-15.5)
[2023-10-27 03:26] LABS: Amorphous Sediment,Urine Rare /hpf; Appearance,Urine Turbid (Clear); Bacteria,Urine Occasional /hpf; Bilirubin,Urine Negative (Negative); Blood,Urine Negative (Negative); Color,Urine Yellow; Glucose,Urine (UA) Negative (Negative); Ketones,Urine Negative (Negative); Leukocyte Esterase,Urine Negative (Negative); Mucus,Urine Few /hpf; Nitrite,Urine Negative (Negative); Protein,Urine Trace (Negative); Squamous Epithelial Cell,Urine 4 /hpf (0-4); Urobilinogen,Urine <2.0 mg/dL (<2.0); WBC,Urine 3 /hpf (0-5)
[2023-10-27 03:48] LABS: ALT 25 U/L (4-34); AST 25 U/L (14-36); African American GFR (CKD) >90 (>60 ml/min/1.73 sqM); Albumin 4.3 g/dL (3.5-5.0); Alkaline Phosphatase 64 U/L (38-126); Amylase 49 U/L (30-110); Anion Gap 6 mmol/L; Blood Urea Nitrogen 13 mg/dL (7-17); Calcium 9.5 mg/dL (8.4-10.2); Carbon Dioxide 28 mmol/L (22-30); Chloride 106 mmol/L (98-107); Glucose 108 mg/dL (74-99); Lipase 94 U/L (23-300); Non-African American GFR(CKD) >90 (>60 ml/min/1.73 sqM); Potassium 4.1 mmol/L (3.5-5.1); Sodium 140 mmol/L (137-145); Total Bilirubin 0.6 mg/dL (0.2-1.3)
--- NOTE | 2023-10-27 03:59 | XR ---
EXAMINATION TYPE: XR chest 2V DATE OF EXAM: 10/27/2023 COMPARISON: CT chest March 19, 2021 HISTORY: Right upper quadrant/lower thorax pain TECHNIQUE: Frontal and lateral views of the chest are obtained. FINDINGS: There is no focal air space opacity, pleural effusion, or pneumothorax seen. The cardiac silhouette size is stable and within normal limits. The osseous structures are intact. IMPRESSION: No acute cardiopulmonary process.
--- NOTE | 2023-10-27 04:02 | CT ---
EXAMINATION TYPE: CT abdomen pelvis w con DATE OF EXAM: 10/27/2023 HISTORY: RUQ abdominal pain and nausea. CT DLP: 1903.6mGycm Automated Exposure Control for Dose Reduction was Utilized. CONTRAST: CT scan of the abdomen and pelvis is performed with IV Contrast, patient injected with 100 ml mL of I sovue 300. COMPARISON: CT abdomen and pelvis March 19, 2021 FINDINGS: LUNG BASES: No significant abnormality is appreciated. LIVER/GB: Liver is diffusely low-density consistent with fatty infiltrative hepatocellular disease. N o new biliary dilatation. PANCREAS: No significant abnormality is seen. SPLEEN: No significant abnormality is seen. ADRENALS: No significant abnormality is seen. KIDNEYS: No significant abnormality is seen. BOWEL: No abnormal small or large bowel dilatation. Normal-appearing appendix from base of cecum. UTERUS/ADNEXA: Anteverted uterus. Symmetric normal-sized ovaries. LYMPH NODES: No greater than 1cm abdominal or pelvic lymph nodes are appreciated. OSSEOUS STRUCTURES: Multilevel spurring in the spine. Bilateral pars defect L5 level redemonstrated. No new spondylolisthesis. Persistent moderate disc space narrowing with endplate sclerosis at L4-L5 l evel. Persistent disc space narrowing with endplate sclerosis at T12-L1 level. OTHER: No significant additional abnormality is seen. IMPRESSION: No significant new or acute finding is seen to account for patient's clinical symptoms of upright upper quadrant pain and nausea.
--- NOTE | 2023-10-27 04:37 | ED ---
Abdominal Pain HPI - General Chief Complaint: Abdominal Pain Stated Complaint: Back pain nausea Time Seen by Provider: 10/27/23 01:38 Source: patient Mode of arrival: ambulatory Limitations: no limitations - History of Present Illness Initial Comments: 38-year-old female presenting with chief complaint of right upper quadrant pain. Pain started tonight. States that it radiates to her right flank. She has had intermittent nausea and vomiting. No fevers or chills. No history of abdominal surgeries. No constipation or diarrhea. No chest pain or difficulty breathing. - Related Data Home Medications Medication Instructions Recorded Confirmed Acetaminophen Tab [Tylenol Tab] 1,000 mg PO Q6HR PRN 02/24/19 02/24/19 Previous Rx's Medication Instructions Recorded Ondansetron Odt [Zofran Odt] 4 mg PO Q8HR PRN #20 tab 10/27/23 Allergies Allergy/AdvReac Type Severity Reaction Status Date / Time No Known Allergies Allergy Verified 03/19/21 02:31 Review of Systems ROS Statement: Those systems with pertinent positive or pertinent negative responses have been documented in the HPI. ROS Other: All systems not noted in ROS Statement are negative. Past Medical History Past Medical History: Asthma History of Any Multi-Drug Resistant Organisms: None Reported Past Surgical History: Section, Tonsillectomy Additional Past Surgical History / Comment(s): D and C Past Psychological History: No Psychological Hx Reported Smoking Status: Never smoker Past Alcohol Use History: Rare Past Drug Use History: None Reported General Exam Limitations: no limitations General appearance: alert, in no apparent distress Head exam: Present: atraumatic, normocephalic Eye exam: Present: normal appearance, EOMI Neck exam: Present: normal inspection Respiratory exam: Present: normal lung sounds bilaterally. Absent: respiratory distress, wheezes, rales, rhonchi, stridor Cardiovascular Exam: Present: regular rate, normal rhythm, normal heart sounds. Absent: systolic murmur, diastolic murmur, rubs, gallop, clicks GI/Abdominal exam: Present: soft, tenderness (ruq, mild). Absent: distended, guarding, rebound, rigid Neurological exam: Present: alert, oriented X3 Psychiatric exam: Present: normal affect, normal mood Skin exam: Present: warm, dry Course Vital Signs 10/27/23 10/27/23 00:53 04:51 Temperature 97.9 F Pulse Rate 81 84 Respiratory 16 18 Rate Blood Pressure 145/90 126/77 O2 Sat by Pulse 100 100 Oximetry Medical Decision Making - Medical Decision Making Was pt. sent in by a medical professional or institution (, [facility], PAPER SLITTER, urgent care, hospital, or correction...) When possible be specific @ -No Did you speak to anyone other than the patient for history (EMS, parent, family, police, friend...)? What history was obtained from this source @ -No Did you review nursing and triage notes (agree or disagree)? Why? @ -I reviewed and agree with nursing and triage notes Were old charts reviewed (outside hosp., previous admission, EMS record, old EKG, old radiological studies, urgent care reports/EKG's, correction records)? Report findings @ -No old charts were reviewed Differential Diagnosis (chest pain, altered mental status, abdominal pain women, abdominal pain men, vaginal bleeding, weakness, fever, dyspnea, syncope, headache, dizziness, GI bleed, back pain, seizure, CVA, palpatations, mental health, musculoskeletal)? @ -MDM Differential Abdominal Pain Women: Appendicitis, Cholecystitis, diverticulosis, ischemic bowel, pancreatitis, hepatitis, UTI, gastroenteritis, AAA, incarcerated hernia, bowel obstruction, constipation, inflammatory bowel, hepatitis, peptic ulcer disease, splenic infarction, perforated viscus, vulvitis, ovarian torsion, PID, kidney stone, placenta abruption... This is not meant to be an all-inclusive list EKG interpreted by me (3pts min.). @ -As above X-rays interpreted by me (1pt min.). @ -Chest x-ray shows no acute cardiopulmonary process CT interpreted by me (1pt min.). @ -CT shows no significant new or acute findings seen to account for the patient's clinical symptoms of right upper quadrant pain and nausea U/S interpreted by me (1pt. min.). @ -None done What testing was considered but not performed or refused? (CT, X-rays, U/S, labs)? Why? @ -EKG was ordered, patient refused stating that she wanted to go home What meds were considered but not given or refused? Why? @ -None Did you discuss the management of the patient with other professionals (professionals i.e. , MICHAEL, PAPER SLITTER, lab, RT, psych nurse, social services aide, wax specialist, teacher, licensed mortgage loan officer, clinical case manager)? Give summary @ -No Was smoking cessation discussed for >3mins.? @ -No Was critical care preformed (if so, how long)? @ -No Were there social determinants of health that impacted care today? How? (Homelessness, low income, unemployed, alcoholism, drug addiction, transportation, low edu. Level, literacy, decrease access to med. care, [facility], rehab)? @ -No Was there de-escalation of care discussed even if they declined (Discuss DNR or withdrawal of care, Hospice)? DNR status @ -No What co-morbidities impacted this encounter? (DM, HTN, Smoking, COPD, CAD, Cancer, CVA, ARF, Chemo, Hep., AIDS, mental health diagnosis, sleep apnea, morbid obesity)? @ -None Was patient admitted / discharged? Hospital course, mention meds given and route, prescriptions, significant lab abnormalities, going to OR and other pertinent info. @ -38-year-old female presenting with chief complaint of right upper quadrant pain. History and physical exam were conducted. WBC 13.0, likely reactive from vomiting. Urine shows no infectious process or bleeding, negative hCG. CMP requires no action. Negative troponin amylase and lipase. CT shows no acute process and chest x-ray is negative. Patient is resting comfortably. EKG is ordered however the patient refused. Provided with GI and surgery follow-up, educated her on the need for possible HIDA scan. Follow-up with PCP. Report back to ER with any new or worsening symptoms. Discussed return parameters and answered all questions. Patient conveyed verbal understanding and agreed to the plan. I discussed this case in detail with my attending Dr. Guillen Undiagnosed new problem with uncertain prognosis? @ -No Drug Therapy requiring intensive monitoring for toxicity (Heparin, Nitro, Insulin, Cardizem)? @ -No Were any procedures done? @ -No Diagnosis/symptom? @ -Abdominal pain Acute, or Chronic, or Acute on Chronic? @ -Acute Uncomplicated (without systemic symptoms) or Complicated (systemic symptoms)? @ -Uncomplicated Side effects of treatment? @ -No Exacerbation, Progression, or Severe Exacerbation? @ -No Poses a threat to life or bodily function? How? (Chest pain, USA, LA, pneumonia, PE, COPD, DKA, ARF, appy, cholecystitis, CVA, Diverticulitis, Homicidal, Suicidal, threat to staff... and all critical care pts) @ -Unlikely - Lab Data Result diagrams: 10/27/23 02:43 10/27/23 02:43 Lab Results 10/27/23 10/27/23 10/27/23 Range/Units 02:43 02:43 02:43 WBC 13.0 H (3.8-10.6) k/uL RBC 5.00 (3.80-5.40) m/uL Hgb 14.6 (11.4-16.0) gm/dL Hct 41.9 (34.0-46.0) % MCV 83.9 (80.0-100.0) fL MCH 29.3 (25.0-35.0) pg MCHC 34.9 (31.0-37.0) g/dL RDW 12.6 (11.5-15.5) % Plt Count 247 (150-450) k/uL MPV 8.5 Neutrophils % 86 % Lymphocytes % 10 % Monocytes % 3 % Eosinophils % 1 % Basophils % 1 % Neutrophils # 11.2 H (1.3-7.7) k/uL Lymphocytes # 1.3 (1.0-4.8) k/uL Monocytes # 0.4 (0-1.0) k/uL Eosinophils # 0.1 (0-0.7) k/uL Basophils # 0.1 (0-0.2) k/uL Sodium (137-145) mmol/L Potassium (3.5-5.1) mmol/L Chloride (98-107) mmol/L Carbon Dioxide (22-30) mmol/L Anion Gap mmol/L BUN (7-17) mg/dL Creatinine (0.52-1.04) mg/dL Est GFR (CKD-EPI)AfAm (>60 ml/min/1.73 sqM) Est GFR (CKD-EPI)NonAf (>60 ml/min/1.73 sqM) Glucose (74-99) mg/dL Plasma Lactic Acid Ian (0.7-2.0) mmol/L Calcium (8.4-10.2) mg/dL Total Bilirubin (0.2-1.3) mg/dL AST (14-36) U/L ALT (4-34) U/L Alkaline Phosphatase (38-126) U/L Troponin I (0.000-0.034) ng/mL Total Protein (6.3-8.2) g/dL Albumin (3.5-5.0) g/dL Amylase (30-110) U/L Lipase (23-300) U/L Urine Color Yellow Urine Appearance Turbid H (Clear) Urine pH 8.0 (5.0-8.0) Ur Specific Beverly 1.030 (1.001-1.035) Urine Protein Trace H (Negative) Urine Glucose (UA) Negative (Negative) Urine Ketones Negative (Negative) Urine Blood Negative (Negative) Urine Nitrite Negative (Negative) Urine Bilirubin Negative (Negative) Urine Urobilinogen <2.0 (<2.0) mg/dL Ur Leukocyte Esterase Negative (Negative) Urine WBC 3 (0-5) /hpf Ur Squamous Epith Cells 4 (0-4) /hpf Amorphous Sediment Rare H (None) /hpf Urine Bacteria Occasional H (None) /hpf Urine Mucus Few H (None) /hpf Urine HCG, Qual Not Detected (Not Detectd) 10/27/23 10/27/23 10/27/23 Range/Units 02:43 02:43 02:43 WBC (3.8-10.6) k/uL RBC (3.80-5.40) m/uL Hgb (11.4-16.0) gm/dL Hct (34.0-46.0) % MCV (80.0-100.0) fL MCH (25.0-35.0) pg MCHC (31.0-37.0) g/dL RDW (11.5-15.5) % Plt Count (150-450) k/uL MPV Neutrophils % % Lymphocytes % % Monocytes % % Eosinophils % % Basophils % % Neutrophils # (1.3-7.7) k/uL Lymphocytes # (1.0-4.8) k/uL Monocytes # (0-1.0) k/uL Eosinophils # (0-0.7) k/uL Basophils # (0-0.2) k/uL Sodium 140 (137-145) mmol/L Potassium 4.1 (3.5-5.1) mmol/L Chloride 106 (98-107) mmol/L Carbon Dioxide 28 (22-30) mmol/L Anion Gap 6 mmol/L BUN 13 (7-17) mg/dL Creatinine 0.77 (0.52-1.04) mg/dL Est GFR (CKD-EPI)AfAm >90 (>60 ml/min/1.73 sqM) Est GFR (CKD-EPI)NonAf >90 (>60 ml/min/1.73 sqM) Glucose 108 H (74-99) mg/dL Plasma Lactic Acid Ian 1.6 (0.7-2.0) mmol/L Calcium 9.5 (8.4-10.2) mg/dL Total Bilirubin 0.6 (0.2-1.3) mg/dL AST 25 (14-36) U/L ALT 25 (4-34) U/L Alkaline Phosphatase 64 (38-126) U/L Troponin I <0.012 (0.000-0.034) ng/mL Total Protein 7.0 (6.3-8.2) g/dL Albumin 4.3 (3.5-5.0) g/dL Amylase 49 (30-110) U/L Lipase 94 (23-300) U/L Urine Color Urine Appearance (Clear) Urine pH (5.0-8.0) Ur Specific Beverly (1.001-1.035) Urine Protein (Negative) Urine Glucose (UA) (Negative) Urine Ketones (Negative) Urine Blood (Negative) Urine Nitrite (Negative) Urine Bilirubin (Negative) Urine Urobilinogen (<2.0) mg/dL Ur Leukocyte Esterase (Negative) Urine WBC (0-5) /hpf Ur Squamous Epith Cells (0-4) /hpf Amorphous Sediment (None) /hpf Urine Bacteria (None) /hpf Urine Mucus (None) /hpf Urine HCG, Qual (Not Detectd) Disposition Clinical Impression: Right upper quadrant pain Disposition: HOME SELF-CARE Condition: Good Instructions (If sedation given, give patient instructions): Abdominal Pain (ED) Additional Instructions: Follow-up with PCP and surgeon. Report back to ER with any new or worsening symptoms. Prescriptions: Ondansetron Odt [Zofran Odt] 4 mg PO Q8HR PRN #20 tab PRN Reason: Nausea Is patient prescribed a controlled substance at d/c from ED?: No Referrals: Gino Fish MD [Primary Care Provider] - 1-2 days Tammy Roberts MD [STAFF PHYSICIAN] - 1-2 days Fito Lee MD [STAFF PHYSICIAN] - 1-2 days Time of Disposition: 04:37
[2023-10-27] MEDS: ACET/COD 300 MG/30 MG STARTER PACK 6 TAB BTL PO STA (04:48)
[2023-10-27 05:21] VITALS: BP 126/77; PULSE 84; RESP 18
== END 2023-10-27 05:08 | disposition home or self-care (01) ==
LOC: EC 00:07
DX: R10.11 Right upper quadrant pain (principal); J45.909 Unspecified asthma, uncomplicated
CPT/HCPCS: 36415; 80053; 82150; 83605; 83690; 84484; 85025; 81001; 81025; 71046; 74177; 99284; 96374; 96375; 96361; J2270; J2405; Q9967